=== PATIENT | female | born 1970 | race Caucasian/White ===

== ENCOUNTER → 2018-08-01 12:04 | Outpatient (CLI) | payer BC, SELFPAY ==
--- NOTE | 2018-08-01 12:35 | RAD_ITS ---
STUDY: X-RAY - PELVIS AND RIGHT HIP REASON FOR EXAM: Female, 48 years old. Generalized pain. Fall last night. TECHNIQUE: 2 views of the pelvis and hip. COMPARISON: Pelvis and right hip, February 09, 2017. FINDINGS: There is a non-specific bowel gas pattern. Normal visualized soft tissue structures. Normal bilateral iliac wings, sacroiliac joints and visualized sacrum. Normal bilateral superior and inferior pubic rami. Normal pubic symphysis. Normal bilateral ischial tuberosities. The left hip appears unchanged from the previous exam. There is interval replacement of the right hip. The prosthetic components are intact and articulate normally with each other. No loosening from the underlying bone. There is no fracture. RAD/Pelvis 1 or 2 Views IMPRESSION: Interval right hip replacement. There is no acute abnormality or other interval change. Electronically Signed: Jose Armando Roca DO at 17:37 EDT Tel [phone], Service support ,
[2018-08-01 13:03] LABS: Erythrocyte Sedimentation Rate 44 mm/hr (0-20)
[2018-08-01 13:05] LABS: Absolute Lymphocyte Count 2.13 X10^3/ul (0.83-4.51); Absolute Neutrophil Count 9.5 X10^3/uL (2.0-7.7); Basophil# 0.01 X10^3/uL; Basophil% 0.1 % (0-1); Eosinophil# 0.02 X10^3/uL; Eosinophils% 0.2 % (0-5); Hematocrit 37.3 % (37-47); Hemoglobin 11.8 g/dl (12.0-15.0); Lymphocyte # 2.13 X10^3/ul (4.0); Lymphocyte % 17.1 % (19-41); Mean Corp Hgb Conc 31.6 g/gl (32-36); Mean Corpuscular Hgb 27.4 pg (27.0-32.0); Mean Corpuscular Volume 86.7 fL (81-99); Mean Platelet Vol. 8.4 fl (6.2-12.0); Monocyte# 0.78 X10^3/uL; Monocyte% 6.3 % (0-10); Neutrophil # 9.45 X10^3/uL (2.7-7.7); Neutrophil % 75.9 % (47-70); Platelet Count 354 K/mm3 (150-450); RBC Distribution Width CV 15.2 % (11.6-14.6); RBC Distribution Width SD 47.8 fl (35.1-43.9); White Blood Count 12.4 K/mm3 (4.4-11.0)
[2018-08-01 13:06] LABS: POSITIVE COUNT NO; POSITIVE DIFFERENTIAL NO; POSITIVE MORPHOLOGY NO
[2018-08-01 13:17] LABS: ALB/GLOB Ratio 0.8 RATIO (0.9-2.4); AST(SGOT) 13 U/L (15-37); Alanine Aminotransfer ALT/SGPT 22 U/L (13-56); Albumin, Serum 3.5 g/dL (3.2-5.0); Alkaline Phosphatase 133 U/L (45-117); Anion Gap 7 (5-15); BUN 16 mg/dL (7-18); BUN/Creat Ratio 11.4 RATIO (10-20); Calcium,Total 8.8 mg/dL (8.5-10.1); Chloride 100 mmol/L (98-107); EST Glomerular Filtration Rate 42 mL/min (>60); Est Glom Filt Rate - Afr Amer 51 mL/min (>60); Globulin 4.2 g/dL (2.2-4.2); Glucose 111 mg/dL (74-106); Potassium 3.9 mmol/L (3.5-5.1); Protein, Total 7.7 g/dL (6.4-8.2); Rheumatoid Factor < 10.0 IU/mL (<15); Sodium Level 139 mmol/L (136-145)
[2018-08-03 17:10] LABS: ANTINUCLEAR ANTIBODIES DIRECT Negative (Negative)
[2018-08-07 14:46] LABS: CCP IgG Antibodies 7 units (0-19); HEPATITIS B SURFACE AG Negative (Negative); HLA B27 Negative (.); Hep B Surface Antibodies Non Reactive (.); Hep C Antibodies <0.1 s/co ratio (0.0-0.9)
== END ==
PROVIDERS: Family Provider Nurse Practitioner Family; PCP Nurse Practitioner Family; Referring Provider Internal Medicine Rheumatology; Visit Provider Internal Medicine Rheumatology
DX: M06.4 Inflammatory polyarthropathy (principal); M79.7 Fibromyalgia; M21.40 Flat foot [pes planus] (acquired), unspecified foot; F41.9 Anxiety disorder, unspecified; F32.89 Other specified depressive episodes; G43.909 Migraine, unspecified, not intractable, without status migrainosus; I10 Essential (primary) hypertension; E78.5 Hyperlipidemia, unspecified; J30.9 Allergic rhinitis, unspecified
CPT/HCPCS: 36415; 72170; 80053; 81374; 85025; 85652; 86038; 86140; 86200; 86431; 86706; 86803; 87340

== ENCOUNTER → 2022-11-08 | Outpatient (CLI) | payer BC, SELFPAY ==
--- NOTE | 2022-11-08 | ASPOS_PTH ---
PATIENT: GUNJAN KWAN LOC: [facility] U#:[id number] AGE/SX: 52/F ROOM: RE11/08/[address]: Dr. Michael Reyes MD : 1970 BED: DIS: 11/08/2022 SPEC #: [id number] RECD: 11/08/22 10:29 STATUS: SEMAJ RERadha #: [id number] DERIAN: 11/08/22 00:[address]: Michael Reyes DEPT: CYTOLOGY RECD BY: Cris Jackson ENTERED: 11/08/22 10:31 SP TYPE: ASP HERE OTHR DR: Jackie Figueroa, PREKINDERGARTEN TEACHER-Jaylon Tissues: Parotid gland, NOS Procedures: Surgery Specimen Level IV Cytology Other Fine Needle Asp on Site HEADER OPERATION: Fine needle aspiration left parotid gland PRE-OP DIAGNOSIS: Not noted TISSUE SUBMITTED: Left parotid gland fluid DIAGNOSIS CYTOLOGY Fine needle aspiration, left parotid gland (smears and cell block): Mild chronic inflammation. AM:amaya 11/09/2022 COMMENT An FNA is performed and the specimen is evaluated at the time of FNA by Dr. Rene. Immediate Evaluation = Consistent with chronic inflammation. No evidence of malignancy. CYTOLOGY STUDY Slides are reviewed. CYTOLOGY GROSS Received is 0.5 ml of reddish fluid labeled with the patient's name, and designated left parotid gland. Four imprints and three paps are made from the submitted fluid and the rest is added to CytoLyt for cell block preparation. Submitted for cytology study. / AM:amaya 11/08/2022 TC:3 CPT: 83498, 98719, 08622, 84506
== END | disposition home or self-care (01) ==
PROVIDERS: PCP Nurse Practitioner Family; Referring Provider Otolaryngology Otolaryngology/Facial Plastic Surgery; Visit Provider Otolaryngology Otolaryngology/Facial Plastic Surgery
DX: I88.1 Chronic lymphadenitis, except mesenteric (principal); K11.8 Other diseases of salivary glands
CPT/HCPCS: 10021; 88161; 88305

== ENCOUNTER → 2023-05-09 | Outpatient (CLI) | payer OTHER, SELFPAY ==
--- OUTSIDE RECORDS SUMMARY | 2023-05-09 09:26 | XMS RPT_ITS | CCD ---
Author Name Unknown Address [address] [place] [address] Organization [facility] Care Team Providers Care Sales Representative Wire Rope Name Role Phone UNGERER, AMARILIS BARK TANNER Primary Care Unavailable UNGERER, AMARILIS BARK TANNER Attending Unavailable UNGERER, AMARILIS BARK TANNER Admitting Unavailable UNGERER, AMARILIS BARK TANNER Consulting Unavailable PROVIDER, UNKNOWN Consulting Unavailable UNGERER, AMARILIS BARK TANNER Admitting Unavailable UNGERER, AMARILIS BARK TANNER Consulting Unavailable UNGERER, AMARILIS BARK TANNER Attending Unavailable UNGERER, AMARILIS BARK TANNER Primary Care Unavailable PROVIDER, UNKNOWN Consulting Unavailable UNGERER, AMARILIS BARK TANNER Primary Care Unavailable UNGERER, AMARILIS BARK TANNER Admitting Unavailable UNGERER, AMARILIS BARK TANNER Consulting Unavailable UNGERER, AMARILIS BARK TANNER Attending Unavailable PROVIDER, UNKNOWN Consulting Unavailable VELLANBETTY ANGEL Attending Unavailable VELLANKI, ANGEL Admitting Unavailable UNGERER, AMARILIS BARK TANNER Consulting Unavailable VELLANKI, ANGEL Primary Care Unavailable PROVIDER, UNKNOWN Consulting Unavailable UNGERER, AMARILIS BARK TANNER Primary Care Unavailable UNGERER, AMARILIS BARK TANNER Admitting Unavailable UNGERER, AMARILIS BARK TANNER Consulting Unavailable UNGERER, AMARILIS BARK TANNER Attending Unavailable PROVIDER, UNKNOWN Consulting Unavailable UNGERER, AMARILIS BARK TANNER Primary Care Unavailable UNGERER, AMARILIS BARK TANNER Admitting Unavailable UNGERER, AMARILIS BARK TANNER Consulting Unavailable UNGERER, AMARILIS BARK TANNER Attending Unavailable PROVIDER, UNKNOWN Consulting Unavailable VELLANBETTY ANGEL Attending Unavailable VELLANKI, ANGEL Admitting Unavailable UNGERER, AMARILIS BARK TANNER Consulting Unavailable VELLANKI, ANGEL Primary Care Unavailable PROVIDER, UNKNOWN Consulting Unavailable UNGERER, AMARILIS BARK TANNER Consulting Unavailable ANGEL BRAN MD Admitting Unavailable ANGEL BRAN MD Primary Care Unavailable ANGEL BRAN MD Attending Unavailable PROVIDER, UNKNOWN Consulting Unavailable UNGERER, AMARILIS BARK TANNER Consulting Unavailable VELLANKI, ANGEL MD Primary Care Unavailable ANGEL BRAN MD Attending Unavailable ANGEL BRAN MD Admitting Unavailable PROVIDER, UNKNOWN Consulting Unavailable AMARILIS LAGUERRE NP Consulting Unavailable ANGEL BRAN MD Admitting Unavailable ANGEL BRAN MD Primary Care Unavailable ANGEL BRAN MD Attending Unavailable PROVIDER, UNKNOWN Consulting Unavailable AMARILIS LAGUERRE BARK TANNER Consulting Unavailable AMARILIS LAGUERRE BARK TANNER Referring Unavailable SHAR JACOB C Primary Care Unavailable SHAR JACOB C Attending Unavailable SHAR JACOB C Admitting Unavailable PROVIDER, UNKNOWN Consulting Unavailable AMARILIS LAGUERRE BARK TANNER Referring Unavailable UNGERERAMARILIS BARK TANNER Consulting Unavailable MYLES, JACOB C Admitting Unavailable MYLES, JACOB C Primary Care Unavailable MYLES JACOB C Attending Unavailable PROVIDER, UNKNOWN Consulting Unavailable STEVE GUARDADO DO Attending Unavailable STEVE GUARDADO DO Admitting Unavailable AMARILIS LAGUERRE BARK TANNER Consulting Unavailable STEVE GUARDADO DO Primary Care Unavailable PROVIDER, UNKNOWN Consulting Unavailable GUZMAN COLE Primary Care Unavailable KATIE TEAGUE Referring Unavailab le GUZMAN COLE Primary Care Unavailable KATIE TEAGUE Attending Unavailab le Allergies Allergy Classification Reported Allergen(s) Allergy Type Date of Onset Reaction(s) Facility (1 source) Cephalexin Drug Allergy [facility] Repository (2 sources) Morphine; Translations: [MORPHINE] Drug Allergy [facility] Repository (1 source) Sulfamethoxazole / Trimethoprim Drug Allergy [facility] Repository (1 source) Sulfonamides (Antibiotic) Drug allergy (disorder) [facility] Repository (1 source) SOME ANTIINFLAMMATORIES Drug allergy (disorder) [facility] Repository Problems Active Problems Problem Classification Problem Date Documented Da te Episodic/Chronic Heart valve disorders (2 sources) Nonrheumatic aortic (valve) insufficiency; Translations: [Nonrheumatic mitral (valve) insufficiency] Onset: 03-02-2022 Chronic Immunity disorders (1 source) Immunodeficiency, unspecified; Translations: [Immunodeficiency, unspecified] Onset: 10-12-2022 Chronic Other aftercare (3 sources) Other usp (current) drug therapy; Translations: [Other rda (current) drug therapy] Onset: 09-24-2022 Episodic Residual codes; unclassified (1 source) Pain, unspecified; Translations: [Pain] Onset: 03-31-2023 Episodic Unclassified (2 sources) Cough, unspecified; Translations: [Cough, unspecified] Onset: 02-08-2022 Past or Other Problems Problem Classification Problem Date Documented Da te Episodic/Chronic Abdominal pain (3 sources) Unspecified abdominal pain; Translations: [Unspecified abdominal pain] Onset: 02-25-2022 Episodic Allergic reactions (3 sources) Allergy status to sulfonamides status; Translations: [Allergy status to other antibiotic agents status] Onset: 02-25-2022 Episodic Other connective tissue disease (1 source) Fibromyalgia; Translations: [Fibromyalgia] Onset: 02-25-2022 Episodic Other lower respiratory disease (3 sources) Shortness of breath; Translations: [Shortness of breath] Onset: 12-31-2021 Episodic Unclassified (1 source) Cough, unspecified; Translations: [Cough, unspecified] Onset: 02-08-2022 Results Test Name Value Interpretation Reference Range Facil ity Encounters Encounter Date Encounter Type Care Provider Facility Start: 03-31-2023 End: 03-31-2023 [facility] Facility[facility] Start: 03-31-2023 End: 03-31-2023 [facility] Start: 12-21-2022 End: 12-21-[address] [facility] Start: 10-13-2022 End: 10-13-2022 ambulatory AMARILIS DEVONTE [facility] Start: 10-12-2022 End: 10-12-2022 [facility] Start: 09-24-2022 End: 09-24-[address] [facility] Start: 07-03-2022 End: 07-03-2022 ambulatory AMARILIS WHITNEY [facility] Start: 06-15-2022 End: 06-15-2022 Emergency department patient visit AMARILIS WHITNEY [facility] Start: 04-14-2022 End: 04-14-2022 ambulatory AMARILIS BARK TANNER [facility] Start: 03-29-2022 End: 03-29-2022 ambulatory AMARILIS BARK TANNER [facility] Start: 03-02-2022 End: 03-02-2022 ambulatory AMARILIS BARK TANNER [facility] Start: 02-25-2022 End: 02-25-2022 Emergency department patient visit AMARILIS BARK TANNER [facility] Start: 02-21-2022 End: 02-21-2022 ambulatory AMARILIS BARK TANNER [facility] Start: 02-08-2022 End: 02-08-2022 ambulatory AMARILIS BARK TANNER [facility] Start: 12-31-2021 End: 12-31-2021 ambulatory STEVE SCHWARZ [facility] Procedures Date Procedure Procedure Detail Performing Clinician Start: 02-25-2022 Urinalysis AMARILIS UN GERER Payers Date Payer Category Payer Unknown [id number] 1970 Unknown [id number] 2.16.8 [id number] 1970 Unknown [id number] 2.16.8 [id number] 1970 Unknown [id number] 2.16.8 [id number] 1970 Unknown [id number] 2.16.8 [id number] 1970 Unknown [id number] 2.16.84 [id number] 1970 Unknown [id number] 2.16.84 [id number] 1970 Unknown [id number] 2.16.84 [id number] 1970 Unknown [id number] 2.16.84 [id number] 1970 Unknown [id number] 2.16.84 [id number] 1970 Unknown [id number] 2.16.84 [id number] 1970 Unknown [id number] 2.16.84 [id number] 1970 Unknown [id number] 2.16.84 [id number] 1970 Unknown [id number] 2.16.84 [id number] Unknown [id number] Unknown [id number] Progress note 03-31-2023 Note Date & Type Note Facility 03-31-2023 Note HNO ID: [id number] Author: Katie Teague, DO Service: ? Author Type: Physician Type: Progress Notes Filed: 03/31/2023 11:44 AM Note Text: Reason for Visit/Chief Complaint Tiffanie Cerrato is a 52 year old female who presents today for a new evaluation of following complaint: Patient presents with: Left Knee - New, Knee Pain Right Knee - New, Knee Pain History of Present Illness: PAIN EVALUATION 03/30/2023 1912 Pain Level: 6 Description: Aching;Cramping;Radiating;Shooting;Spasm; Stabbing Duration Units: Weeks Frequency: Intermittent Intervention/Comfort measure: Relaxation;Positioning HPI: Tiffanie Cerrato is a 52 year old female presenting today with bilateral knee pain. Pain history is noted as above. She has pain above her knee caps since summer. Her knees feel like her right knee catching and has fallen 4-5 times. Her right knee is worse than her right. Her knees will make a clicking noise. She has a history of Rheumatoid arthritis and fibromyalgia. She has a cane to use but does not like using it. X-rays done today. Taking no med's for the pain. She works as a hairdresser. She is able to work from a chair due to unable to stand anymore. Daughter is getting and would like knees fixed before. Previous Treatments: Ice: Yes Heat: Yes Brace: No NSAIDs: Yes,Tylenol only, is unable to take Ibuprofen due to her kidneys Injections: No Surgeries: No Physical Therapy: No Review of Systems: Patient did not have, and does not currently have, any weight loss, malaise, fever, chills, headache, chest pain, chest pressure, palpitations, cough, shortness of breath, orthopnea, paroxsymal nocturnal dyspnea, nausea, vomiting, diarrhea, constipation, melena, hematochezia, urinary difficulties, prolonged bleeding, easily bruising, heat or cold intolerance, new onset joint pain or swelling, new onset extremity weakness or numbness, new onset auditory or visual disturbances, lightheadedness, dizziness, partial loss of consciousness or full loss of consciousness. Current Outpatient Medications on File Prior to Visit Medication Sig abatacept (ORENCIA CLICKJECT SUBCUTANEOUS) cyclobenzaprine (FLEXERIL) 10 mg tablet traMADol (ULTRAM) 50 mg tablet TAKE 1 TABLET BY MOUTH THREE TIMES DAILY NEEDED FOR 30 DAYS montelukast (SINGULAIR) 10 mg tablet Take 1 tablet by mouth every afternoon. lisinopril-hydroCHLOROthiazide (ZESTORETIC) 20-12.5 mg per tablet Take 1 tablet by mouth every afternoon. biotin 5,000 mcg chew Take by mouth once daily. predniSONE (DELTASONE) 20 mg tablet Take 20 mg by mouth as needed. fluticasone-salmeterol (ADVAIR DISKUS) 100-50 mcg/dose inhaler Inhale 1 Puff as instructed once daily. ALBUTEROL INHALATION Inhale as instructed as needed. DULoxetine (CYMBALTA) 60 mg capsule Take 60 mg by mouth once daily. leflunomide (ARAVA) 20 mg tablet Take 20 mg by mouth once daily. FLUoxetine HCl (PROZAC) 40 mg capsule atorvastatin (LIPITOR) 20 mg tablet folic acid 1 mg tablet gabapentin (NEURONTIN) 300 mg capsule ferrous sulfate 325 mg (65 mg iron) tablet Take 325 mg by mouth daily with breakfast. lisinopril-hydrochlorothiazide (ZESTORETIC) 10-12.5 mg per tablet Take 1 tablet by mouth once daily. No current facility-administered medications on file prior to visit. ALLERGIES Allergen Reactions Morphine GI Upset Physical Exam: Vitals: Ht 5' 1 (1.55m) Wt 250 lb (113.4kg) BMI 47.26 kg/(m2). Psych: Pleasant, good affect and mood General Appearance: Well appearing, alert, in no acute distress, well-hydrated, well nourished.. Skin: Skin color, texture, turgor normal, no suspicious rashes or lesions. Peripheral Pulses: Normal. Neurologic: Gait normal. Reflexes normal and symmetric. Sensation grossly intact.. Lymph Nodes: No cervical lymphadenopathy, No supraclavicular lymphadenopathy, No axillary lymphadenopathy., and No inguinal lymphadenopathy.. Respiratory: No recent pulmonary infection, hemoptysis, chronic cough, or shortness of breath at rest Rheumatologic: Joint deformities: b/l knee oa Right Knee Exam Muscle Strength The patient has normal right knee strength. Tenderness The patient is experiencing tenderness in the medial joint line and patella. Range of Motion Extension: abnormal Flexion: abnormal Tests Kal: Anterior - negative Posterior - negative Drawer: Anterior - negative Posterior - negative Other Erythema: absent Sensation: normal Pulse: present Swelling: mild Left Knee Exam Muscle Strength The patient has normal left knee strength. Tenderness The patient is experiencing tenderness in the medial joint line and patella. Range of Motion Extension: abnormal Flexion: abnormal Tests Kal: Anterior - negative Posterior - negative Drawer: Anterior - negative Posterior - negative Other Erythema: absent Sensation: normal Pulse: present Swelling: (more content not included)... [facility] Progress note 03-31-2023 Note Date & Type Note Facility 03-31-2023 Note HNO ID: [id number] Author: Marley Ayala RT(R) Service: Radiology Author Type: Technologist Type: Progress Notes Filed: 03/31/2023 10:37 AM Note Text: Radiology Service Progress Note PATIENT NAME: Tiffanie Cerrato DATE OF SERVICE: March 31, 2023 TIME: 10:19 AM PATIENT IDENTITY VERIFICATION COMPLETED USING TWO (2) IDENTIFIERS: Name and Date of confirmed by patient verbally. FALL SCREENING: Has the patient had 2 falls in the last year or 1 fall with injury or currently using an Ambulatory Assistive Device (Walker, Cane, Wheelchair, Crutches, etc.)? No PATIENT GENDER DATA: Female. status: : No status: NO. PATIENT RELEVANT IMPLANT DATA REVIEWED: Yes RADIOLOGY DEPARTMENT: General X-ray: Exam(s) Completed: Lower Extremity X-Ray(s): Knee, AP / Lat / Tunne / Merchant Bilateral and Wt. Bearing PERIPHERAL IV DATA: Not applicable SIGNED BY: RT Tucker(R) March 31, 2023 10:19 AM [facility] Clinical Note 06-21-2022 Note Date & Type Note Facility 06-21-2022 Note . MICRO - Microbiology PROCEDURE: Blood Culture (bacterial) [*1] SOURCE: Blood BODY SITE: COLLECTED DATE/TIME: 06/15/2022 15:50 EST RECEIVED DATE/TIME: 06/16/2022 16:33 EST START DATE/TIME: 06/16/2022 16:33 EST FREE TEXT SOURCE: FINAL REPORTS Final Report [] Verified Date/Time/Personnel: 06/21/2022 16:59 EST Blood Culture: No Growth at 5 days. PRELIMINARY REPORTS Preliminary Report [] Verified Date/Time/Personnel: 06/16/2022 17:59 EST Culture has been received in lab and is no growth to date. Routine cultures are held for 5 days. Performing Locations *1: This test was performed at: [facility], [address] [place] [address], [address] [place] [address] ([place]) Summary Purpose Family History No Family History Records FoundNo Family History Records FoundNo Family History Records FoundNo Family History Records FoundNo Family History Records Found Advance Directives No Advanced Directives Records FoundNo Advanced Directives Records FoundNo Advanced Directives Records FoundNo Advanced Directives Records FoundNo Advanced Directives Records Found Additional Source Comments INFORMATION SOURCE (unrecogn ized section and content) DATE CREATED AUTHOR AUTHOR'S ORGANIZ ATION 01/31/2020 [facility] DATE CREATED AUTHOR AUTHOR'S ORGANIZ ATION 06/23/2022 [facility] ([place]) DATE CREATED AUTHOR AUTHOR'S ORGANIZ ATION 12/22/2022 [facility] DATE CREATED AUTHOR AUTHOR'S ORGANIZ ATION 04/07/2023 [facility] FOR RECORDS PERTAINING TO PATIENTS WHO ARE OR HAVE BEEN ENROLLED IN A CHEMICAL DEPENDENCY/SUBSTANCEABUSE PROGRAM, SOME INFORMATION MAY BE OMITTED. This clinical summary was aggregated from multiple sources. Caution should be exercised in using it in the provision of clinical care. This summary normalizes information from multiple sources, and as a consequence, information in this document may materially change the coding, format and clinical context of patient data. In addition, data may be omitted in some cases. CLINICAL DECISIONS SHOULD BE BASED ON THE PRIMARY CLINICAL RECORDS. [facility]. provides no warranty or guarantee of the accuracy or completeness of information in this document.
[2023-05-09 10:16] LABS: Absolute Lymphocyte Count 2.78 X10^3/uL (0.83-4.51); Absolute Neutrophil Count 7.7 X10^3/uL (2.0-7.7); Basophil# 0.07 X10^3/uL; Basophil% 0.6 % (0-1); Eosinophil# 0.23 X10^3/uL; Hematocrit 42.6 % (37-47); Hemoglobin 12.9 g/dL (12.0-15.0); Lymphocyte # 2.78 X10^3/ul (0.83-4.51); Mean Corp Hgb Conc 30.3 g/dL (32-36); Mean Corpuscular Hgb 26.7 pg (27.0-32.0); Mean Platelet Vol. 8.4 fl (6.2-12.0); Monocyte# 0.72 X10^3/uL; Monocyte% 6.2 % (0-10); NRBC Flagged by Analyzer 0 % (0-5); Neutrophil # 7.73 X10^3/uL (2.7-7.7); Neutrophil % 66.8 % (47-70); Platelet Count 488 K/mm3 (150-450); RBC Distribution Width CV 15.3 % (11.6-14.6); RBC Distribution Width SD 48.6 fl (35.1-43.9); Red Blood Count 4.84 M/mm3 (4.2-5.4); White Blood Count 11.6 K/mm3 (4.4-11.0)
[2023-05-09 10:28] LABS: ALB/GLOB Ratio 0.9 RATIO (0.9-2.4); AST(SGOT) 21 U/L (15-37); Alanine Aminotransfer ALT/SGPT 27 U/L (13-56); Albumin, Serum 3.8 g/dL (3.2-5.0); Alkaline Phosphatase 153 U/L (45-117); Anion Gap 6 (5-15); BUN 22 mg/dL (7-18); BUN/Creat Ratio 17.3 RATIO (10-20); Calcium,Total 9.5 mg/dL (8.5-10.1); Chloride 101 mmol/L (98-107); Creatinine, Serum 1.27 mg/dL (0.55-1.02); EST Glomerular Filtration Rate 47 mL/min (>60); Est Glom Filt Rate - Afr Amer 56 mL/min (>60); Globulin 4.2 g/dL (2.2-4.2); Glucose 103 mg/dL (74-106); Sodium Level 138 mmol/L (136-145)
== END | disposition home or self-care (01) ==
PROVIDERS: PCP Nurse Practitioner Family; Referring Provider Internal Medicine Rheumatology; Visit Provider Internal Medicine Rheumatology
DX: M06.00 Rheumatoid arthritis without rheumatoid factor, unspecified site (principal); Z79.899 Other long term (current) drug therapy
CPT/HCPCS: 36415; 80053; 85025

== ENCOUNTER → 2023-05-24 | Outpatient (CLI) | payer OTHER, SELFPAY ==
--- NOTE | 2023-05-24 07:20 | CT_ITS ---
CT LEFT LOWER EXTREMITY WITH 3-D IMAGING CLINICAL INDICATION: OSTEOARTHRITIS LEFT KNEE *[employer] [employer] PROT[employer]OL* TECHNIQUE: Axial CT images of the left lower extremity (including left hip, left knee, and left ankle) was performed without IV contrast material. Coronal and sagittal reformats were provided. RADIATION DOSAGE (If Supplied By Facility): CTDIvol = ( 19.52 ) mGy, DLP = ( 1479.55 ) mGycm COMPARISON: No relevant prior comparison study available. FINDINGS: Bones: Normal left hip. There is moderate tricompartment degenerative arthrosis of the left knee with joint space narrowing and marginal osteophyte formation, most pronounced in the medial femorotibial compartment. There is mild tibiotalar arthrosis. There is a plantar calcaneal spur. Osseous structures are intact without evidence of fracture or dislocation. No lytic or blastic osseous masses. Soft Tissues: There is a small left knee joint effusion. The deep soft tissue structures are unremarkable. The superficial soft tissues are unremarkable without evidence of edema, hematoma, or foreign body. CT/Extremity Lower without Contra IMPRESSION: Moderate tricompartment degenerative arthrosis of the left knee, most pronounced in the medial femorotibial compartment. Small left knee joint effusion. Electronically Signed: Ryland Engel MD at 9:53 EST Reading Location ID and State: [facility] / [place] , Service support ,
--- OUTSIDE RECORDS SUMMARY | 2023-05-24 07:43 | XMS RPT_ITS | CCD ---
Author Name Unknown Address [address] [place] [address] Organization [facility] Care Team Providers Care Polo Coach Name Role Phone UNGERER, AMARILIS PLAN CONSULTANT Primary Care Unavailable UNGERER, AMARILIS PLAN CONSULTANT Attending Unavailable UNGERER, AMARILIS PLAN CONSULTANT Admitting Unavailable UNGERER, AMARILIS PLAN CONSULTANT Consulting Unavailable PROVIDER, UNKNOWN Consulting Unavailable UNGERER, AMARILIS PLAN CONSULTANT Admitting Unavailable UNGERER, AMARILIS PLAN CONSULTANT Consulting Unavailable UNGERER, AMARILIS PLAN CONSULTANT Attending Unavailable UNGERER, AMARILIS PLAN CONSULTANT Primary Care Unavailable PROVIDER, UNKNOWN Consulting Unavailable UNGERER, AMARILIS PLAN CONSULTANT Primary Care Unavailable UNGERER, AMARILIS PLAN CONSULTANT Admitting Unavailable UNGERER, AMARILIS PLAN CONSULTANT Consulting Unavailable UNGERER, AMARILIS PLAN CONSULTANT Attending Unavailable PROVIDER, UNKNOWN Consulting Unavailable VELLANBETTY ANGEL Attending Unavailable VELLANKI, ANGEL Admitting Unavailable UNGERER, AMARILIS PLAN CONSULTANT Consulting Unavailable VELLANKI, ANGEL Primary Care Unavailable PROVIDER, UNKNOWN Consulting Unavailable UNGERER, AMARILIS PLAN CONSULTANT Primary Care Unavailable UNGERER, AMARILIS PLAN CONSULTANT Admitting Unavailable UNGERER, AMARILIS PLAN CONSULTANT Consulting Unavailable UNGERER, AMARILIS PLAN CONSULTANT Attending Unavailable PROVIDER, UNKNOWN Consulting Unavailable UNGERER, AMARILIS PLAN CONSULTANT Primary Care Unavailable UNGERER, AMARILIS PLAN CONSULTANT Admitting Unavailable UNGERER, AMARILIS PLAN CONSULTANT Consulting Unavailable UNGERER, AMARILIS PLAN CONSULTANT Attending Unavailable PROVIDER, UNKNOWN Consulting Unavailable VELLANBETTY ANGEL Attending Unavailable VELLANKI, ANGEL Admitting Unavailable UNGERER, AMARILIS PLAN CONSULTANT Consulting Unavailable VELLANKI, ANGEL Primary Care Unavailable PROVIDER, UNKNOWN Consulting Unavailable UNGERER, AMARILIS PLAN CONSULTANT Consulting Unavailable ANGEL BRAN MD Admitting Unavailable ANGEL BRAN MD Primary Care Unavailable ANGEL BRAN MD Attending Unavailable PROVIDER, UNKNOWN Consulting Unavailable UNGERER, AMARILIS PLAN CONSULTANT Consulting Unavailable VELLANKI, ANGEL MD Primary Care Unavailable ANGEL BRAN MD Attending Unavailable ANGEL BRAN MD Admitting Unavailable PROVIDER, UNKNOWN Consulting Unavailable AMARILIS LGAUERRE NP Consulting Unavailable ANGLE BRAN MD Admitting Unavailable ANGEL BRAN MD Primary Care Unavailable ANGEL BRAN MD Attending Unavailable PROVIDER, UNKNOWN Consulting Unavailable AMARILIS LAGUERRE PLAN CONSULTANT Consulting Unavailable AMARILIS LAGUERRE PLAN CONSULTANT Referring Unavailable SHAR JACOB C Primary Care Unavailable SHAR JACOB C Attending Unavailable SHAR JACOB C Admitting Unavailable PROVIDER, UNKNOWN Consulting Unavailable AMARILIS LAGUERRE PLAN CONSULTANT Referring Unavailable UNGERERAMARILIS PLAN CONSULTANT Consulting Unavailable MYLES, JACOB C Admitting Unavailable MYLES, JACOB C Primary Care Unavailable MYLES JACOB C Attending Unavailable PROVIDER, UNKNOWN Consulting Unavailable STEVE GUARDADO DO Attending Unavailable STEVE GUARDADO DO Admitting Unavailable AMARILIS LAGUERRE PLAN CONSULTANT Consulting Unavailable STEVE GUARDADO DO Primary Care Unavailable PROVIDER, UNKNOWN Consulting Unavailable GUZMAN COLE Primary Care Unavailable MISA TEAGUE Referring Unavailab le GUZMAN CLOE Primary Care Unavailable MISA TEAGUE Attending Unavailab le Allergies Allergy Classification Reported Allergen(s) Allergy Type Date of Onset Reaction(s) Facility (1 source) Cephalexin Drug Allergy [facility] Repository (2 sources) Morphine; Translations: [MORPHINE] Drug Allergy [facility] Repository (1 source) Sulfamethoxazole / Trimethoprim Drug Allergy [facility] Repository (1 source) Sulfonamides (Antibiotic) Drug allergy (disorder) [facility] Repository (1 source) SOME ANTIINFLAMMATORIES Drug allergy (disorder) [facility] Repository Problems Active Problems Problem Classification Problem Date Documented Da te Episodic/Chronic Heart valve disorders (2 sources) Nonrheumatic aortic (valve) insufficiency; Translations: [Nonrheumatic mitral (valve) insufficiency] Onset: 03-02-2022 Chronic Immunity disorders (1 source) Immunodeficiency, unspecified; Translations: [Immunodeficiency, unspecified] Onset: 10-12-2022 Chronic Other aftercare (3 sources) Other group home (current) drug therapy; 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] Onset: 09-24-2022 Episodic Residual [...] Care Provider Facility Start: 03-31-2023 End: 03-31-2023 [facility] Facility:[facility] Start: 03-31-2023 End: 03-31-2023 [facility] Facility:[facility] Start: 12-21-2022 End: 12-21-2022 ambulatory [facility] Start: 10-13-2022 End: 10-13-2022 ambulatory AMARILIS DEVONTE [facility] Start: 10-12-2022 End: 10-12-2022 [facility]ulatory [facility] Start: 09-24-2022 End: 09-24-2022 ambulatory [facility] Start: 07-03-2022 End: 07-03-2022 ambulatory AMARILIS WHITNEY [facility] Start: 06-15-2022 End: 06-15-2022 Emergency department patient visit AMARILIS WHITNEY [facility] Start: 04-14-2022 End: 04-14-2022 ambulatory AMARILIS PLAN CONSULTANT [facility] Start: 03-29-2022 End: 03-29-2022 ambulatory AMARILIS PLAN CONSULTANT [facility] Start: 03-02-2022 End: 03-02-2022 ambulatory AMARILIS PLAN CONSULTANT [facility] Start: 02-25-2022 End: 02-25-2022 Emergency department patient visit AMARILIS PLAN CONSULTANT [facility] Start: 02-21-2022 End: 02-21-2022 ambulatory AMARILIS PLAN CONSULTANT [facility] Start: 02-08-2022 End: 02-08-2022 ambulatory AMARILIS PLAN CONSULTANT [facility] Start: 12-31-2021 End: 12-31-2021 ambulatory STEVE SCHWARZ [facility] Procedures Date Procedure Procedure Detail Performing Clinician Start: 02-25-2022 Urinalysis AMARILIS UN GERER Payers Date Payer Category Payer Unknown [id number] 1970 Unknown [id number] 2.16.8 [id number] 1970 Unknown [id number] 2.16.8 [id number] 1970 Unknown [id number] 2.16.8 [id number] 1970 Unknown [id number] 2.16.8 [id number] 1970 Unknown [id number] 2.16.84 [id number] 1970 Unknown [id number] 2.16.84 [id number] 1970 Unknown [id number] 2.16.84 [id number] 1970 Unknown [id number] 2.16.84 [id number] 1970 Unknown [id number] 2.16.84 [id number] 1970 Unknown [id number] 2.16.84 [id number] 1970 Unknown [id number] 2.16.84 [id number] 1970 Unknown [id number] 2.16.84 [id number] 1970 Unknown [id number] 2.16.84 [id number] Unknown [id number] Unknown [id number] Progress note 03-31-2023 Note Date & Type Note Facility 03-31-2023 Note HNO ID: [id number] Author: Misa Teague, DO Service: ? Author Type: Physician [...] Pulse: present Swelling: (more content not included)... [facility] Progress note 03-31-2023 Note Date & Type Note Facility 03-31-2023 Note HNO ID: [id number] Author: Marley Ayala RT(R) Service: Radiology Author [...] RT Tucker(R) March 31, 2023 10:19 AM [facility] Clinical Note 06-21-2022 Note Date & Type [...] Locations *1: This test was performed at: [facility], [address] [place] [address], [address] [place] [address] ([place]) Summary Purpose Family History No Family History [...] DATE CREATED AUTHOR AUTHOR'S ORGANIZ ATION 01/31/2020 [facility] DATE CREATED AUTHOR AUTHOR'S ORGANIZ ATION 06/23/2022 [facility] ([place] DATE CREATED AUTHOR AUTHOR'S ORGANIZ ATION 12/22/2022 [facility] DATE CREATED AUTHOR AUTHOR'S ORGANIZ ATION 04/07/2023 [facility] FOR RECORDS PERTAINING TO PATIENTS WHO ARE [...] BE BASED ON THE PRIMARY CLINICAL RECORDS. [facility]. provides no warranty or guarantee of the accuracy or completeness of information in this document.
== END | disposition home or self-care (01) ==
LOC: CT 07:19
PROVIDERS: PCP Nurse Practitioner Family; Referring Provider Orthopaedic Surgery; Visit Provider Orthopaedic Surgery
DX: M17.12 Unilateral primary osteoarthritis, left knee (principal); M21.162 Varus deformity, not elsewhere classified, left knee; M25.562 Pain in left knee
CPT/HCPCS: 73700

== ENCOUNTER 2023-06-13 08:56 | Day surgery (SDC) | payer OTHER, SELFPAY ==
[2023-05-24 09:59] LABS: Magnesium 2.1 mg/dL (1.6-2.6)
[2023-05-24 11:48] LABS: Hemoglobin A1c 5.8 % (3.8-5.6)
[2023-06-13] VITALS (10 sets, daily range): BP systolic 104–157; BP diastolic 55–99; PULSE 75–97; RESP 14–18; TEMP 36.4–36.8; O2SAT 95–100; BMI 48.7
[2023-06-13] MEDS: Magnesium 1 GM over 15 mins IV (09:44)
[2023-06-13] MEDS: Lactated Ringers 1,000 ML 15 ML IV (09:44)
[2023-06-13] MEDS: Acetaminophen 500 MG Tablet 1000 MG PO (09:45)
[2023-06-13] MEDS: Gabapentin 600 MG Tablet PO (09:46)
[2023-06-13 10:34] LABS: Bedside Glucose 113 mg/dL (74-106)
--- NOTE | 2023-06-13 11:26 | RAD_ITS ---
STUDY: X-RAY - LEFT KNEE REASON FOR EXAM: Female, 53 years old. Post op -- in PACU TECHNIQUE: 2 views of the left knee. COMPARISON: None. FINDINGS: There are new postoperative changes related to left total knee arthroplasty with patellar resurfacing. There is a vertical staple line along the anterior aspect of the knee. There is gas in the patellofemoral joint recess and anterior soft tissues, compatible with recent surgery. The orthopedic hardware components are intact. There is no periprosthetic fracture. Normal proximal tibiofibular articulation. RAD/Knee 1 or 2 Views IMPRESSION: New postoperative changes related to left total knee arthroplasty. Electronically Signed: Ryland Engel MD at 15:14 EST ,
--- NOTE | 2023-06-13 12:00 | KNEE_PTH ---
PATHOLOGY RESULTS PATIENT: GUNJAN YEUNG LOC: [facility] [place] U#:[id number] AGE/SX: 53/F ROOM: RE06/13/[address]: Dr. Ramakrishna Philippe DO : 1970 BED: DIS: 06/13/2023 SPEC #: [id number] RECD: 06/14/23 08:22 STATUS: SEMAJ RERadha #: [id number] DERIAN: 06/13/23 12:[address]: Ramakrishna Philippe DEPT: SURGICAL PATHOLOGY RECD BY: Eliane Cleveland ENTERED: 06/14/23 08:22 SP TYPE: TOTAL KNEE OTHR DR: VIN Cash Tissues: Knee, NOS Procedures: Decalcification bone/plaque Surgery Specimen Level IV HEADER OPERATION: ERAS, left total knee arthroplasty with robotic assistance PRE-OP DIAGNOSIS: Osteoarthritis of left knee TISSUE SUBMITTED: Left knee bone and tissue MICROSCOPIC DIAGNOSIS Bone and soft tissue, left knee, total knee replacement/resection: Pieces of bone with degenerative osteoarthritic changes. Fibroadipose tissue, fibroconnective tissue and reactive synovial tissue. MEKA:amaya 06/17/2023 MICROSCOPIC DESCRIPTION Slides are reviewed. GROSS DESCRIPTION Received is one container designated bone and soft tissue left knee. The specimen consists of multiple fragments of valerio-yellow bone measuring in aggregate 11.0 x 9.0 x 4.0 cm. Also in the specimen container are multiple fragments of fibrocartilaginous tissue measuring in aggregate 6.0 x 2.5 x 1.5 cm. A number of bony fragments contain articular surfaces consistent with tibial plateau and femoral condyle and displaying prominent osteophyte formation, eburnation and bone erosion. Dental Surgery Doctor sections are submitted in two cassettes as follows: 1 - soft tissue, 2 - bone after decalcification. / MEKA:amaya 06/14/2023 TC:5 CPT: 81590, 81918
[2023-06-13] MEDS: Clindamycin 900 MG/50 ML BAG 75 MG IV ×2 (12:34→16:41)
[2023-06-13] MEDS: TXA 1000mg in NS100 100ml (IVPB at Incision) 660 MG IV (12:41)
[2023-06-13] MEDS: TXA 1000mg in NS100 100ml (IVPB at Closure) 660 MG IV (13:46)
[2023-06-13] MEDS: JPS (Morphine 10mg/ml) OPERA.SITE (13:55)
--- NOTE | 2023-06-13 13:58 | OP.PCM_ITS ---
Report of Operation Date of Procedure: 06/13/23 Pre-Operative Diagnosis: OA Left knee Post-Operative Diagnosis: Same Surgery/Procedure Performed:: Left TKR Description of Surgical Findings:: Report of Operation Date of Procedure: 06/13/23 Preoperative Diagnosis: [ Left ] knee primary osteoarthritis Postoperative Diagnosis: [ Left ] knee primary osteoarthritis Operation: Robotic Assisted Knee Total Arthroplasty, [ Left ] knee Surgeon: Dr Ramakrishna Philippe DO Catering Cook: Anderson Nieves PA-C Anesthesia: spinal Anesthesiologist: Jonny Saha M.D. Findings: Stable knee with good patella tracking Specimen(s): Bony cuts Complications: No intraoperative complications Estimated Blood Loss: 20 cc IV Fluids: 1000 cc crystalloid Implants Used: 1. Kristan Triathlon press-fit CR size 3 femur 2. [place] Triathlon size 2 tibia 3. 32 mm patella 4. 9 mm CS polyethylene Brief History Operative Indications: [ (53 y/o female) ] with history of [left ] knee osteoarthrosis with radiographic findings with loss of joint space, osteophyte formation and subchondral sclerosis. Failed conservative measures as mentioned in the H&P. Discussion of total knee arthroplasty as well as risk and benefits were discussed with the patient including but not limited to blood loss, DVTs, PEs, neurovascular damage, general risk of anesthesia including loss of life, and stiffness or instability were also discussed with the patient. Patient demonstrated understanding and was able to sign informed consent. Procedure: On the date of procedure, patient's [ left ] lower extremity was marked in the preoperative area. The patient was then taken back to the operating room where that patient was placed on the table in the supine position. All bony prominences were identified and well-padded. Anesthesia assumed control of the C-spine and airway throughout the remainder of the procedure. A tourniquet was placed on the [left ] upper thigh and the leg was prepped in a sterile fashion. The surgeon then scrubbed at this time. Upon reentering the room, the [ left ] lower extremity was draped in a standard orthopedic fashion. A timeout was then called and everyone agreed upon the side, the site, the procedure to be performed, patient's identity and antibiotics given. Esmarch bandage was used to exsanguinate the extremity and the tourniquet was placed up to 300 mmHg with the knee in flexion. A midline skin incision was made and a sharp dissection was taken down through skin, subcutaneous tissue and fat. The standard medial parapatellar incision was made and the patella was subluxed laterally. An appropriate deep MCL release was done and the fat pad was resected. Our attention was then directed to the patella. The patella was everted and a flat resection was made. The knee was then flexed up and 2 femoral pins were placed inside the incision and 2 tibial pins were placed outside the incision in the medial tibia bicortically. Once this was completed, the 2 checkpoints in the femur and tibia were placed. Knee was then flexed up and the bony landmarks were registered. Once the was completed, the knee taken through range of motion and manually stressed allowing us to plan for an appropriate tibial cut. The robotic arm was brought into the field sterilely and checkpoint and saw were registered. Based on the patient's deformity, the tibial cut was made in [2 degrees varus ]. At this time, the tensioner was then placed in the joint and ligament tension was checked at 90 degrees and full extension. Based on the patient's ligamentous tension, appropriate adjustments were made to the operative plan and ligament releases were done. Once we were happy with our operative plan with balanced flexion and extension gaps, our attention was directed to the femur. The robot was brought into the field sterilely and registered. Posterior condylar cuts, anterior chamfer cuts and anterior cuts were appropriately made for a [ size 3 ] femur. When these were completed, the saws were switched out in the distal femoral and posterior chamfer cuts were made. Protecting the soft tissue throughout this time. A [ size 2 ] base plate was selected. The knee was flexed to 90 degrees and soft tissues and posterior osteophytes were removed from the joint. 40 cc of the periarticular injection was injected into the posterior medial corner of the joint. The appropriate trials were then placed on the femur and tibia. A trial polyethylene was trialed to ensure proper balancing and stability of the knee. The appropriate tibial internal rotation was then marked with a bovie. Our attention was then directed to the patella. The lug holes were drilled and the patella trial was placed. Patellar tracking was checked and deemed appropriate. Once we were happy, lug holes were drilled for the femur and trial components were removed. The tibia was subluxed and pinned into place and the keel was punched and drilled appropriately. Final components were verified and opened. The wound was copiously irrigated with normal saline. The components were impacted into place with the tibia, femur and finally the patella. The trial poly component was placed and the knee was placed in full extension. The tracking, alignment and balance were verified and a [9 mm CS ] polyethylene component was placed. Once the final components were placed an Irrisept lavage was performed and the wound was copiously irrigated with normal saline solution and the periarticular injection was given. the wound was closed in a layer-burgos fashion using #1 vicryl interrupted sutures for the arthrotomy, 2-0 interrupted vicryl suture for the subcuticular layer and german for final skin closure. A sterile compressive dressing was then placed. The patient was then awakened from anesthesia, transferred to the rmccoy and transferred to the PACU for recovery. My physician hospital clinic assistant was a vital part of this case. He was important in appropriate retraction during the case, and protection of soft tissues during bony cuts. His intimate knowledge of the case and my steps aided in safe and expedient completion of the procedure as well as appropriate position of the leg during the case. He was also vital in assisting with closure under my direct supervision. Due to the complexity of this case, robotic arm was used to assist in the surgery to improve accuracy and clinical outcomes. Post-op Plan: DVT ppx; ASA 81 mg BID, thigh high compression stockings Follow up: in office in 2 weeks for wound check PT: to start POD #0 at hospital, outpatient PT should be arranged. Preoperative antibiotic: Clindamycin 900 mg IV Ramakrishna Philippe DO Surgeon: Ramakrishna Philippe headliner installer: Anderson Nieves Type of Anesthesia: Spinal Anesthesiologist: Jonny Saha Estimated Blood Loss (mL): 20 cc Fluids Replaced: 1000 cc crystalloid Admit VTE Documentation VTE Present on Admission: No VTE Mechan Device Prophylaxis: SCD's and Thigh High TIFFANIE Hose VTE Pharm Prophylaxis ordered?: Yes
[2023-06-13] MEDS: Lactated Ringers 1,000 ML 999 ML IV (14:25)
== END 2023-06-13 17:46 | disposition home or self-care (01) ==
LOC: SDC 08:57 → AC 08:58
PROVIDERS: Anesthesiology; PCP Nurse Practitioner Family; Referring Provider Orthopaedic Surgery; Visit Provider Orthopaedic Surgery
PROC: 0SRD0JZ Replacement of Left Knee Joint with Synthetic Substitute, Open Approach (ICD-10-PCS; CPT 27447; principal; 2023-06-13 11:30)
DX: M17.12 Unilateral primary osteoarthritis, left knee (principal); E66.01 Morbid (severe) obesity due to excess calories; Z68.42 Body mass index [BMI] 45.0-49.9, adult; I10 Essential (primary) hypertension; E78.00 Pure hypercholesterolemia, unspecified; J45.909 Unspecified asthma, uncomplicated; M79.7 Fibromyalgia; M21.162 Varus deformity, not elsewhere classified, left knee; Z79.899 Other long term (current) drug therapy
CPT/HCPCS: 27447; 01402; 36415; 73560; 82962; 83036; 83735; 87081; 88305; 88311; 93005; 97162; C1776; J7120; J2405; J3475

== ENCOUNTER → 2023-07-26 | Outpatient (CLI) | payer OTHER, SELFPAY ==
--- NOTE | 2023-07-26 13:12 | CT_ITS ---
PROCEDURE: CT RIGHT KNEE WITHOUT CONTRAST REASON FOR EXAM: Female, 53 years old. Preoperative planning for the MakoPlasty Robotic knee surgery. Knee pain. TECHNIQUE: Transaxial CT of the hip, knee and ankle were obtained. Coronal and sagittal reconstruction images of the knee were provided. Individualized dose optimization techniques were used for this CT. COMPARISON: Pelvis and hip images dated 02/08/2017 FINDINGS: Standard protocol for the preoperative planning for the MakoPlasty robotic knee surgery was performed. Osteopenia with right total hip arthroplasty, tricompartmental arthrosis of the knee with osteophytes and mild arthrosis of the tibiotalar joint. Superior and inferior calcaneal spurs. CT/Extremity Lower without Contra IMPRESSION: Preoperative MakoPlasty Robotic knee surgical CT evaluation with findings as described above. Electronically Signed: Anderson Kc MD at 14:35 EDT ,
== END | disposition home or self-care (01) ==
PROVIDERS: PCP Nurse Practitioner Family; Referring Provider Physician Assistant; Visit Provider Physician Assistant
DX: M17.11 Unilateral primary osteoarthritis, right knee (principal); M25.561 Pain in right knee
CPT/HCPCS: 73700

== ENCOUNTER 2023-08-18 05:17 | Day surgery (SDC) | payer OTHER, SELFPAY ==
--- NOTE | 2023-07-26 12:53 | EKG12_ITS ---
Test Reason : PRE OP Blood Pressure : / mmHG Vent. Rate : 097 BPM Atrial Rate : 097 BPM P-R Int : 140 ms QRS Dur : 092 ms QT Int : 328 ms P-R-T Axes : 063 039 084 degrees QTc Int : 416 ms Normal sinus rhythm Nonspecific ST and T wave abnormality Abnormal ECG Confirmed by Ramakrishna Hernandez ([id number]), commercial production editor ANNA ANDRE ([id number]) on 07/27/2023 5:48:19 AM Referred By: Jakob Sampson Confirmed By:Ramakrishna Hernandez
[2023-07-26 14:11] LABS: Absolute Lymphocyte Count 2.75 X10^3/uL (0.83-4.51); Absolute Neutrophil Count 6.7 X10^3/uL (2.0-7.7); Basophil# 0.05 X10^3/uL; Basophil% 0.5 % (0-1); Eosinophil# 0.23 X10^3/uL; Eosinophils% 2.2 % (0-5); Hematocrit 37.2 % (37-47); Hemoglobin 11.8 g/dL (12.0-15.0); Lymphocyte # 2.75 X10^3/ul (0.83-4.51); Mean Corp Hgb Conc 31.7 g/dL (32-36); Mean Corpuscular Hgb 27.2 pg (27.0-32.0); Mean Corpuscular Volume 85.7 fL (81-99); Mean Platelet Vol. 8.4 fl (6.2-12.0); Monocyte# 0.77 X10^3/uL; Monocyte% 7.3 % (0-10); NRBC Flagged by Analyzer 0 % (0-5); Neutrophil # 6.73 X10^3/uL (2.7-7.7); Neutrophil % 63.5 % (47-70); Platelet Count 441 K/mm3 (150-450); RBC Distribution Width CV 14.1 % (11.6-14.6); RBC Distribution Width SD 43.8 fl (35.1-43.9); Red Blood Count 4.34 M/mm3 (4.2-5.4); White Blood Count 10.6 K/mm3 (4.4-11.0)
[2023-07-26 15:43] LABS: Albumin, Serum 3.8 g/dL (3.2-5.0); Anion Gap 9 (5-15); BUN 19 mg/dL (7-18); BUN/Creat Ratio 15.1 RATIO (10-20); Calcium,Total 10.1 mg/dL (8.5-10.1); Chloride 100 mmol/L (98-107); Creatinine, Serum 1.26 mg/dL (0.55-1.02); EST Glomerular Filtration Rate 47 mL/min (>60); Est Glom Filt Rate - Afr Amer 57 mL/min (>60); Glucose 86 mg/dL (74-106); Magnesium 1.8 mg/dL (1.6-2.6); Potassium 3.4 mmol/L (3.5-5.1); Sodium Level 135 mmol/L (136-145)
[2023-07-26 16:48] LABS: Hemoglobin A1c 5.5 % (3.8-5.6)
[2023-08-18] VITALS (9 sets, daily range): BP systolic 99–120; BP diastolic 52–76; PULSE 84–100; RESP 16–18; TEMP 36.1–36.7; O2SAT 93–100; BMI 47.4
[2023-08-18] MEDS: Acetaminophen 500 MG Tablet 1000 MG PO (06:08)
[2023-08-18] MEDS: Gabapentin 600 MG Tablet PO (06:08)
[2023-08-18] MEDS: Lactated Ringers 1,000 ML 999 ML IV ×2 (06:16→10:04)
[2023-08-18] MEDS: Magnesium 2 GM for ERAS IV (06:22)
[2023-08-18] MEDS: Lactated Ringers 1,000 ML 75 ML IV (06:36)
[2023-08-18 06:43] LABS: Bedside Glucose 99 mg/dL (74-106)
[2023-08-18] MEDS: JPS (Morphine 10mg/ml) OPERA.SITE (07:30)
[2023-08-18] MEDS: dexAMETHasone 10 MG/ML Vial IV (07:30)
[2023-08-18] MEDS: Clindamycin 900 MG/50 ML BAG 75 MG IV ×2 (07:30→11:55)
[2023-08-18] MEDS: TXA 1000mg in NS100 100ml (IVPB at Incision) 660 MG IV (07:30)
--- NOTE | 2023-08-18 07:30 | KNEE_PTH ---
PATIENT: GUNJAN KWAN LOC: [facility] [place] U#:[id number] AGE/SX: 53/F ROOM: RE08/18/[address]: Dr. Jakob Sampson DO : 1970 BED: DIS: 08/18/2023 SPEC #: [id number] RECD: 08/18/23 11:49 STATUS: SEMAJ BERNARDO #: [id number] DERIAN: 08/18/23 07:[address]: Jakob Sampson DEPT: SURGICAL PATHOLOGY RECD BY: Luzma Beckford ENTERED: 08/18/23 11:50 SP TYPE: TOTAL KNEE OTHR DR: Jackie Figueroa, VIN Tissues: Knee, NOS Procedures: Decalcification bone/plaque Surgery Specimen Level IV HEADER OPERATION: TETO, robotic assisted total knee PRE-OP DIAGNOSIS: Arthritis right knee TISSUE SUBMITTED: Right knee, tissue and bone MICROSCOPIC DIAGNOSIS Bone and soft tissue, right knee, total knee replacement/resection: Pieces of bone with degenerative osteoarthritic changes. Fragments of fibrocartilaginous tissue with reactive changes. SJ: 08/24/23 MICROSCOPIC DESCRIPTION Slides are reviewed. GROSS DESCRIPTION Received is one container designated bone and soft tissue right knee. The specimen consists of multiple fragments of valerio-yellow bone measuring in aggregate 16.0 x 11.0 x 1.5 cm. Also in the specimen container are multiple fragments of yellow-white soft tissue measuring in aggregate 2.0 x 2.0 x 1.0 cm. A number of bony fragments contain articular surfaces consistent with tibial plateau and femoral condyle and displaying prominent osteophyte formation, eburnation and bone erosion. Route Driver Salesperson sections are submitted in two cassettes as follows: 1 - soft tissue, 2 - bone after decalcification. / AM/ 08/18/23 TC:5 CPT: 57382, 60436
[2023-08-18] MEDS: TXA 1000mg in NS100 100ml (IVPB at Closure) 660 MG IV (09:14)
--- NOTE | 2023-08-18 10:10 | RAD_ITS ---
STUDY: X-RAY - RIGHT KNEE REASON FOR EXAM: Female, 53 years old. Post op R TKA -- in PACU TECHNIQUE: 2 views of the right knee. COMPARISON: None. FINDINGS: There are new postoperative changes related to right total knee arthroplasty with patellar resurfacing. There is a vertical staple line along the anterior aspect of the knee. There is gas in the patellofemoral joint recess and anterior soft tissues, compatible with recent surgery. The orthopedic hardware components are intact. There is no periprosthetic fracture. Normal proximal tibiofibular articulation. RAD/Knee 1 or 2 Views IMPRESSION: New postoperative changes related to right total knee arthroplasty. Electronically Signed: Ryland Engel MD at 10:40 EDT ,
[2023-08-18] MEDS: Lactated Ringers 1,000 ML 125 ML IV ×2 (10:39→11:58)
--- NOTE | 2023-08-18 11:44 | PCM.OPRPT ---
Report of Operation Date of Procedure: 08/18/23 Description of Surgical Findings:: Preoperative diagnosis: Right knee primary osteoarthritis Postoperative diagnosis: Right knee primary osteoarthritis Procedure: Robotic arm assisted right total knee arthroplasty Surgeon: Jakob Sampson DO Outside Food Server: Destini Lion PA-C Anesthesia: Spinal with sedation, adductor canal block Anesthesiologist: Dr. Tellez Complications: None apparent Drains: None Estimated blood loss: 100 cc Urinary output: None recorded IV fluids: 1500 cc crystalloid Specimens: Total knee resections Surgical implants: [place] triathlon X3 asymmetric patella size a32 mm, triathlon cruciate retaining femoral press-fit size #3, triathlon TriTanium tibial component #2, triathlon X3 tibial bearing insert CS 9 mm Indications: This is a 53-year-old male seen in the outpatient setting diagnosed with right knee osteoarthritis with significant varus deformity. She failed nonoperative management with intra-articular corticosteroid injections, activity modification, bracing, [id number] analgesics. X-rays revealed grade 4 medial compartment changes. She also had significant patellofemoral arthritis. I recommended a right total knee arthroplasty. The risk, benefits, alternatives to procedure reviewed with patient at length and she agreed to proceed. Risks included but were not limited to bleeding, infection, loss of life or limb, need for additional surgery, persistent pain, intraoperative or postoperative fracture, instability, loosening of components, wound complications, stiffness, neurovascular injury, DVT or PE. Patient expressed understanding these risks and wished to proceed with surgery. Informed consent was obtained in the outpatient setting. Description of procedure: Patient was identified in the preoperative holding area by name, medical record number, and date of . Informed consent was confirmed with the patient. The operative knee was marked with a surgical marker. At time of her procedure, patient brought to the operative suite and positioned supine a standard operating table. Anesthesia then administered a spinal anesthetic. She was then repositioned in the supine position with all bony prominences well-padded. We then placed a well-padded pneumatic tourniquet on the right upper thigh. The right upper extremity was brought across patient's chest throughout the procedure. We then prepped and draped the right lower extremity in a normal, sterile orthopedic fashion. We performed a timeout with all parties in attendance in agreement with the side, site, operation be performed. No concerns were voiced and would like to proceed with surgery. 900 mg Cleocin was administered prior to the incision by anesthesia staff as well as 1 g IV TXA. First I exsanguinated the left lower extremity with a Esmarch bandage. Tourniquet was inflated to 280 mmHg which remained up for approximately 65 minutes. Esmarch was removed. I planned a standard midline approach to the right knee approximately 15 cm in length. Skin was sharply incised with a 10 blade scalpel developing full-thickness layers down to the retinaculum. Layers were developed identifying the VMO. I then planned a standard medial parapatellar arthrotomy performed in flexion. The anterior horn of the medial meniscus was released. Hoffa's fat pad was then released. I then everted the patella in extension and brought the knee into 90 degrees of flexion. The anterior horn of the lateral meniscus was then released. The ACL was split in its mid substance with a 10 blade. We then brought the knee back into extension. I then selected a appropriately sized patellar reamer. I measured the thickness of the patella to be 26mm. I then reamed the patella to a depth of approximately 16 mm. A protective baseplate was then placed on the patella. I then placed pins in the metaphyseal distal femur medial to lateral for the Mika arrays. In similar fashion, I made a 2 cm incision approximately a handsbreadth distal to the tibial tubercle along the medial aspect of the tibia, drilling 2 bicortical pins for the tibial array. The knee was brought into flexion. The patella was subluxed laterally but not everted. Medial lateral retractors were placed. We then utilized the Nginx software to confirm our planned surgical procedure and oriented with the patient's osseous anatomy. All checks with the Nginx system were confirmed. Patient had a significant fixed varus deformity after performing stress examination utilizing the Nginx software. We elected to place the tibial baseplate in 2.5 degrees of varus to allow for appropriate balancing. Sawblade was then brought in. I first started with the tibial cut, ensuring protection of the MCL and patellar tendon. A tibial wafer was then excised. I then proceeded to make the posterior femoral, anterior, anterior chamfer cuts with the same blade. Ligaments were protected with [employer] retractors. Sawblade was then exchanged to perform the distal femoral and posterior chamfer cuts. The robot was then removed from the surgical field. Remaining loose bone and meniscus was excised carefully. Posterior osteophytes were removed from the distal femur with a curved osteotome and rongeur. Trial components were then placed. Balance was excellent in both extension and 90 degrees flexion. No mid flexion instability was apparent. I then drilled for a size 32 patella. Patella was trialed. Tracking was excellent. We then marked for tibial baseplate. Distal femoral pegs were drilled. Tibial keel was punched. Trials were removed. I then drilled for the cruciate pegs for the press-fit tibial plate. Instruments were removed. Periarticular block was administered. The wound was copiously irrigated with normal saline solution. The tibia was then impacted with excellent press-fit purchase. Femur was then impacted in similar fashion. Size 9 mm trial was placed with excellent balance. Simplex cement was then mixed on the back table and the patella was cemented in standard fashion. Excess cement was removed. Tourniquet was deflated. Hemostasis was excellent. Tracking was excellent. An additional 1 g TXA was administered IV. I selected a size 9 mm polyethylene which was placed and impacted per worldwide chief creative officer recommendations. Final components appeared very well balanced with excellent range of motion. There is no significant remaining flexion contracture. The wound was copiously irrigated with normal saline solution. Capsule was closed watertight with #1 strata fix barbed suture. Deeper bursal layer was reapproximated with 0 Vicryl suture. Dermis was reapproximated buried interrupted 2-0 Vicryl suture. Skin was finally reapproximated german. Patient tolerated the procedure well without apparent complication. She was safely awakened in the operative suite, transferred to his hospital bed and subsequently to PACU in stable condition. Need for skilled bilingual sales assistant: Destini Lion PA-C was critical to the outcome of the case. During the course of the procedure the physician bilingual sales assistant played a vital role. Her intimate knowledge of my steps in the procedure aided in safe and expedient completion of the procedure. The PA played a vital role in positioning particularly in obtaining the appropriate positioning. The PA was also vital in the retraction of soft tissues during the exposure and projecting vital structures. The PA was also vital and protecting soft tissues during times of bony cuts. She also played a vital role in closure with my direct supervision. The PA was also important during reduction and dislocation of the joint and trials intraoperatively. Post Operative Plan: Plan for same-day discharge after same-day surgery criteria are met. Weightbearing: Range of motion and weightbearing as tolerated right lower extremity. Antibiotics: 900 mg Cleocin preop, 7 days doxycycline upon discharge DVT Prophylaxis: Multimodal with SCDs, early mobilization and aspirin 81 mg twice daily Bhagat: None Dressing: Maintain silver dressing x 5 days X-Rays: 2-week x-rays in the office. Follow-up: 2 weeks in my office for staple removal
== END 2023-08-18 13:16 | disposition home or self-care (01) ==
LOC: SDC 05:19 → AC 05:19
PROVIDERS: PCP Nurse Practitioner Family; Referring Provider Student in an Organized Health Care Education/Training Program; Visit Provider Student in an Organized Health Care Education/Training Program
PROC: 0SRC0JZ Replacement of Right Knee Joint with Synthetic Substitute, Open Approach (ICD-10-PCS; CPT 27447; principal; 2023-08-18 07:00)
DX: M17.11 Unilateral primary osteoarthritis, right knee (principal); M21.161 Varus deformity, not elsewhere classified, right knee; I10 Essential (primary) hypertension; E78.00 Pure hypercholesterolemia, unspecified; J45.909 Unspecified asthma, uncomplicated; Z79.899 Other long term (current) drug therapy; M21.162 Varus deformity, not elsewhere classified, left knee; Z79.82 Long term (current) use of aspirin
CPT/HCPCS: 27447; 01402; 64450; 36415; 73560; 80048; 82040; 82962; 83036; 83735; 85025; 87081; 88305; 88311; 93005; 97162; C1776; J7120; J2405

== ENCOUNTER → 2023-10-10 | Outpatient (CLI) | payer OTHER, SELFPAY ==
[2023-10-10 15:35] LABS: Absolute Lymphocyte Count 2.99 X10^3/uL (0.83-4.51); Absolute Neutrophil Count 4.8 X10^3/uL (2.0-7.7); Basophil# 0.04 X10^3/uL; Basophil% 0.5 % (0-1); Eosinophil# 0.23 X10^3/uL; Eosinophils% 2.7 % (0-5); Hematocrit 38.8 % (37-47); Lymphocyte # 2.99 X10^3/ul (0.83-4.51); Lymphocyte % 34.8 % (19-41); Mean Corp Hgb Conc 30.9 g/dL (32-36); Mean Corpuscular Hgb 26.8 pg (27.0-32.0); Mean Corpuscular Volume 86.8 fL (81-99); Mean Platelet Vol. 8.8 fl (6.2-12.0); Monocyte# 0.49 X10^3/uL; Monocyte% 5.7 % (0-10); NRBC Flagged by Analyzer 0 % (0-5); Platelet Count 451 K/mm3 (150-450); RBC Distribution Width CV 14.6 % (11.6-14.6); RBC Distribution Width SD 46.1 fl (35.1-43.9); Red Blood Count 4.47 M/mm3 (4.2-5.4); White Blood Count 8.6 K/mm3 (4.4-11.0)
[2023-10-10 16:58] LABS: ALB/GLOB Ratio 0.9 RATIO (0.9-2.4); AST(SGOT) 19 U/L (15-37); Alanine Aminotransfer ALT/SGPT 25 U/L (13-56); Albumin, Serum 3.9 g/dL (3.2-5.0); Alkaline Phosphatase 167 U/L (45-117); Anion Gap 8 (5-15); BUN 14 mg/dL (7-18); BUN/Creat Ratio 11.4 RATIO (10-20); Calcium,Total 9.8 mg/dL (8.5-10.1); Chloride 100 mmol/L (98-107); Creatinine, Serum 1.23 mg/dL (0.55-1.02); EST Glomerular Filtration Rate 48 mL/min (>60); Est Glom Filt Rate - Afr Amer 58 mL/min (>60); Globulin 4.2 g/dL (2.2-4.2); Glucose 103 mg/dL (74-106); Potassium 3.8 mmol/L (3.5-5.1); Protein, Total 8.1 g/dL (6.4-8.2); Sodium Level 137 mmol/L (136-145)
== END | disposition home or self-care (01) ==
LOC: MTLAB 12:40
PROVIDERS: PCP Nurse Practitioner Family; Referring Provider Internal Medicine Rheumatology; Visit Provider Internal Medicine Rheumatology
DX: M06.00 Rheumatoid arthritis without rheumatoid factor, unspecified site (principal); Z79.899 Other long term (current) drug therapy
CPT/HCPCS: 36415; 80053; 85025